=== PATIENT | female | born 1945 | race Hispanic/Latino ===

== ENCOUNTER 2019-03-30 20:42 | Emergency (ER) | payer MEDICARE ==
[~2019-03-30] VITALS: Ht 160 cm; Wt 81.2 kg
[2019-03-30] MEDS ORDERED: ONDANSETRON HCL 4 MG ORAL DISINTEGRATING TAB PO ONE (21:30)
[2019-03-30] MEDS ORDERED: ONDANSETRON HCL 4 MG ORAL DISINTEGRATING TAB ONE (21:32)
--- NOTE | 2019-03-30 22:35 | Diagnostic Imaging Report ---
EXAM: CT Abdomen and Pelvis WITHOUT contrast INDICATION: Abdominal pain, nausea and vomiting. COMPARISON: None. TECHNIQUE: Abdomen and pelvis were scanned utilizing a multidetector helical scanner from the lung base to the pubic symphysis without administration of IV contrast. Absence of intravenous contrast decreases sensitivity for detection of focal lesions and vascular pathology. Coronal and sagittal reformations were obtained. Routine protocol was performed. IV CONTRAST: None. ORAL CONTRAST: Water RADIATION DOSE: Total DLP: 1203.43 mGy*cm Estimated effective dose: (DLP x 0.015 x size factor) mSv COMPLICATIONS: None FINDINGS: LINES and TUBES: None. LOWER THORAX: There is bibasilar atelectasis. HEPATOBILIARY: The liver is diffuse hypodense compared to the spleen, consistent with diffuse hepatic diffuse hepatic steatosis. 3.7 cm cyst in the segment 2 of the liver. 8 mm cyst adjacent to the gallbladder fossa on image 25. No biliary ductal dilation. GALLBLADDER: No radio-opaque stones or sludge. No wall thickening. SPLEEN: No splenomegaly. PANCREAS: No focal masses or ductal dilatation. ADRENALS: No adrenal nodules. KIDNEYS/URETERS: No hydronephrosis. No cystic or solid mass lesions. 1.5 mm nonobstructing calculi is in the lower pole of the right kidney on image 51. Bilateral perinephric stranding. 1.6 cm cyst exophytic of the upper pole of the right kidney. 1.3 cm lesion exophytic of the lateral interpolar region of the left kidney on coronal image 73 cannot be further characterized lack of contrast, however, represent a hyperdense cyst. 3.5 cm fat attenuation lesion exophytic of the anterior lower pole of the left kidney on image 50 consistent with an angiomyolipoma. GI TRACT: No abnormal distention, wall thickening, or evidence of bowel obstruction. Appendix is normal. Large volume of stool within the colon and rectum. PELVIC ORGANS/BLADDER: Metallic densities in the region of the uterine cervix may represent brachytherapy seeds; correlate clinically. Uterine artery calcifications. LYMPH NODES: No lymphadenopathy. VESSELS: There is mild atherosclerotic disease in the aorta and major arterial branches. PERITONEUM / RETROPERITONEUM: No free air or fluid. BONES: There are degenerative changes in the lumbar spine. Slight anterolisthesis of L4 in relation to L5. SOFT TISSUES: Small fat-containing left inguinal hernia. Small fat-containing umbilical hernia. IMPRESSION: 1. No acute abdominopelvic abnormality. 2. 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 3. Small fat-containing umbilical hernia. Signed by: Dr. Ivelisse Cormier M.D. on 03/30/2019 10:33 PM
[2019-03-30] MEDS ORDERED: TAMIFLU75 MG PO (22:41)
[2019-03-30] MEDS ORDERED: ZOFRAN4 MG SL (22:42)
== END 2019-03-30 22:55 | disposition home or self-care (01) ==
LOC: FSED 20:42
DX: R10.13 Epigastric pain (principal); R11.2 Nausea with vomiting, unspecified; J11.1 Influenza due to unidentified influenza virus with other respiratory manifestations
CPT/HCPCS: 74176; 99283; Q0162

== ENCOUNTER 2024-06-01 14:31 | Emergency (ER) | payer MEDICARE ==
[~2024-06-01] VITALS: Ht 154.9 cm; Wt 78.9 kg
[~2024-06-01 14:31] MED LIST: ATORVASTATIN CA20 MG PO; FAMOTIDINE20 MG PO; GABAPENTIN100 MG PO; HUMALOG MI100 UNIT/2 SQ; LANTUS 3ML100 UNITS/ SQ; LISINOPRIL10 MG PO; LOPRESSOR25 MG PO; LOSARTAN-HCTZ1 EAC2; MELOXICAM7.5 MG PO; ONDANSETRON ODT4 MG PO; SODIUM CHLORI1000 M2 PO; TAMIFLU75 MG PO; TRIAMTERENE-HCTZ1 EA PO; ZOFRAN4 MG SL
[2024-06-01 14:47] VITALS: RESP 20; TEMP 98.2
[2024-06-01] MEDS: ONDANSETRON HCL INJ 2MG/ML 2ML 2 MG/ML VIAL IV STA (14:54)
[2024-06-01] MEDS: SODIUM CHLORIDE 0.9% 1000ML 1,000 ML IV ONE (14:55)
[2024-06-01] MEDS ORDERED: HYDRALAZINE HCL 20 MG/ML VIAL IV STA (14:58)
[2024-06-01 15:09] VITALS: PULSE 80
[2024-06-01] MEDS ORDERED: PAXLOVID 300-11 EAC1 PO (16:47)
[2024-06-01 17:35] VITALS: BP 158/63; PULSE 82; RESP 20; O2SAT 96
== END 2024-06-01 17:05 | disposition home or self-care (01) ==
LOC: FSED 14:36
DX: R11.2 Nausea with vomiting, unspecified (principal); U07.1 COVID-19; I10 Essential (primary) hypertension; E11.65 Type 2 diabetes mellitus with hyperglycemia; Z85.41 Personal history of malignant neoplasm of cervix uteri
CPT/HCPCS: 0223U; 71045; 74018; 87400; 99284; J2405; J7030